=== PATIENT | female | born 1995 | race African-American/Black ===

== ENCOUNTER 2022-10-23 16:47 | Inpatient (IN) | payer BC, MEDICAID ==
[~2022-10-23] VITALS: Ht 160 cm; Wt 86.6 kg
[2022-10-23] MEDS ORDERED: HALOPERIDOL 5 MG TABLET PO PRN (19:30)
[2022-10-23] MEDS ORDERED: ZOLPIDEM TARTRATE 10 MG TABLET PO PRN (19:30)
[2022-10-23 19:43] VITALS: BP 110/69
[2022-10-23] MEDS ORDERED: INFLUENZA VIRUS VACCINE QVS 2022-23 (6MO+)/PF 60 MCG/0.5 ML SYRINGE IM. ONE (20:15)
[2022-10-24] MEDS ORDERED: DOCUSATE SODIUM 100 MG CAPSULE PO PRN (07:00)
[2022-10-24] MEDS ORDERED: MAG HYDROX/AL HYDROX/SIMETH ES 30 ML SUSPENSION UDCUP PO PRN (07:00)
[2022-10-24] MEDS ORDERED: CloNIDine HCL 0.1 MG TABLET PO PRN (07:00)
[2022-10-24] MEDS ORDERED: LOPERAMIDE HCL 2 MG CAPSULE PO PRN (07:00)
[2022-10-24] MEDS ORDERED: PETROLATUM,WHITE 28 GM JELLY TP PRN (07:00)
[2022-10-24] MEDS ORDERED: NICOTINE 14 MG/24 HOUR PATCH TD PRN (07:00)
[2022-10-24] MEDS ORDERED: GuaiFENesin/D-METHORPHAN [SUGAR-FREE] 200-20MG/10 ML SYRUP UDCUP PO PRN (07:00)
[2022-10-24] MEDS ORDERED: MAGNESIUM HYDROXIDE SUSPENSION 30 ML UDCUP PO PRN (07:00)
[2022-10-24] MEDS ORDERED: IBUPROFEN 400 MG TABLET PO PRN (07:00)
[2022-10-24] MEDS ORDERED: ALBUTEROL SULFATE HFA 90 MCG/PUFF 8 GM INHALER IH PRN (07:00)
[2022-10-24] MEDS ORDERED: ONDANSETRON HCL 4 MG TABLET PO PRN (07:00)
[2022-10-24] MEDS ORDERED: ACETAMINOPHEN 325 MG TABLET PO PRN (07:00)
[2022-10-24] MEDS ORDERED: ARIP15TA27 PO (09:17)
[2022-10-24] MEDS: DIVALPROEX SODIUM 500 MG DR TABLET PO SCH ×3 (09:30→21:00)
[2022-10-24] MEDS: ARIPiprazole 15 MG TABLET PO SCH ×2 (09:30→09:51)
[2022-10-24] MEDS ORDERED: LORazepam 2 MG/ML VIAL IM ONE ×2 (13:30→13:45)
[2022-10-24] MEDS ORDERED: HALOPERIDOL LACTATE 5 MG/ML VIAL IM ONE ×2 (13:30→13:45)
[2022-10-24] MEDS ORDERED: DiphenhydrAMINE HCL 50 MG/ML VIAL IM ONE ×2 (13:30→13:45)
[2022-10-24] MEDS ORDERED: LORazepam 2 MG/ML VIAL ONE (13:30)
[2022-10-24] MEDS ORDERED: DiphenhydrAMINE HCL 50 MG/ML VIAL ONE (13:31)
[2022-10-24] MEDS ORDERED: HALOPERIDOL LACTATE 5 MG/ML VIAL ONE (13:31)
[2022-10-24 13:53] VITALS: BP 113/75
[2022-10-25 07:46] LABS: BASOPHILS % (AUTO) 0.5 % (0.0-2.0); EOSINOPHILS % (AUTO) 0.9 % (1.0-6.0); HEMATOCRIT 38.5 % (36-46); HEMOGLOBIN 12.3 g/dL (12.0-16.0); MEAN CORPUSCULAR HEMOGLOBIN 21.8 pg (26.0-34.0); MEAN CORPUSCULAR HGB CONC 31.9 G/dL (31.0-37.0); MEAN CORPUSCULAR VOLUME 68 fL (80-100); MONOCYTES % (AUTO) 15.1 % (2.0-9.0); NEUTROPHILS # (AUTO) 3.6 K/uL (1.8-7.7); NEUTROPHILS % (AUTO) 53.5 % (40.0-70.0); PLATELET COUNT (AUTO) 424 K/uL (150-450); RED BLOOD CELL COUNT(AUTO) 5.63 MIL/uL (4.00-5.20); RED CELL DISTRIBUTION WIDTH 16.3 % (11.5-14.5)
[2022-10-25 07:55] LABS: HEMOGLOBIN A1C 5.7 % (3.8-5.6)
[2022-10-25 08:15] LABS: ALANINE AMINOTRANSFERASE 27 U/L (12-78); ALBUMIN 2.9 g/dL (3.4-5.0); ALKALINE PHOSPHATASE 47 U/L (46-116); ANION GAP 10 mmol/L (8-16); ASPARTATE AMINOTRANSFERASE 24 U/L (15-37); BILIRUBIN,TOTAL 0.3 mg/dL (0.1-1.0); CARBON DIOXIDE 29 mmol/L (22-29); CHLORIDE 101 mmol/L (98-107); CHOL/HDL RATIO 3.3 (3.9-5.7); CHOLESTEROL 117 mg/dL (131-200); CREATININE 0.89 mg/dL (0.60-1.30); GLUCOSE,RANDOM 69 mg/dL (70-110); HCG,QUANTITATIVE < 1 mIU/mL (0-6); HDL CHOLESTEROL 36 mg/dL (40-60); LDL CHOL (CALC.) 70 mg/dL (0-130); POTASSIUM 4.1 mmol/L (3.5-5.1); SODIUM SERUM 140 mmol/L (136-145); THYROID STIMULATING HORMONE 1.25 uIU/mL (0.36-3.74); TOTAL PROTEIN, SERUM 8.5 g/dL (6.4-8.2); TRIGLYCERIDES 56 mg/dL (15-150); UREA NITROGEN, BLOOD 12 mg/dL (7-18)
[2022-10-25 08:16] LABS: GLOMERULAR FILTR. RATE CALC > 60 mL/min (>60)
[2022-10-25] MEDS: ARIPiprazole 15 MG TABLET PO SCH (08:20)
[2022-10-25] MEDS: DIVALPROEX SODIUM 500 MG DR TABLET PO SCH ×2 (08:20→20:26)
[2022-10-25] MEDS: LORazepam 2 MG TABLET PO PRN (09:52)
[2022-10-25 10:43] VITALS: BP 115/72
[2022-10-26] MEDS: LORazepam 2 MG TABLET PO PRN ×2 (08:14→18:22)
[2022-10-26] MEDS: ARIPiprazole 15 MG TABLET PO SCH (08:14)
[2022-10-26 08:56] VITALS: BP 118/86
[2022-10-26] MEDS: DIVALPROEX SODIUM 500 MG DR TABLET PO SCH ×2 (08:58→21:00)
[2022-10-26] MEDS ORDERED: NICOTINE POLACRILEX 4 MG GUM CHEW PRN (18:45)
[2022-10-26 20:00] VITALS: BP 109/70
[2022-10-27 07:26] LABS: APPEARANCE,URINE HAZY (CLEAR); BILIRUBIN,URINE NEGATIVE (NEGATIVE); GLUCOSE, URINE (UA) NEGATIVE (NEGATIVE); KETONES,URINE TRACE mg/dL (NEGATIVE); LEUKOCYTE ESTERASE ,URINE NEGATIVE (NEGATIVE); NITRATE,URINE NEGATIVE (NEGATIVE); OCCULT BLOOD,URINE MODERATE (NEGATIVE); PH,URINE 7.5 (5.0-8.0); PROTEIN,URINE 30-70 mg/dL (NEGATIVE); SPECIFIC GRAVITIY, URINE 1.027 (1.003-1.030)
[2022-10-27 07:33] LABS: AMPHET/METH SCREEN,URINE NEGATIVE (NEGATIVE); BARBITURATE SCREEN, URINE NEGATIVE (NEGATIVE); BENZODIAZEPINES SCREEN,URINE NEGATIVE (NEGATIVE); CANNABINOID SCREEN,URINE POSITIVE (NEGATIVE); COCAINE SCREEN,URINE NEGATIVE (NEGATIVE); METHADONE SCREEN, URINE NEGATIVE (NEGATIVE); OPIATE SCREEN,URINE NEGATIVE (NEGATIVE); PHENCYCLIDINE SCREEN,URINE NEGATIVE (NEGATIVE)
[2022-10-27 08:03] VITALS: BP 115/81
[2022-10-27 08:12] LABS: BACTERIA,URINE None Seen /HPF (None Seen); RBC,URINE 0-2 /HPF (0-2); SQUAMOUS EPITHELIAL CELL,UR Few /LPF (None Seen); WBC,URINE 0-2 /HPF (0-5)
[2022-10-27] MEDS: DIVALPROEX SODIUM 500 MG DR TABLET PO SCH (08:13)
[2022-10-27] MEDS: ARIPiprazole 15 MG TABLET PO SCH (08:13)
[2022-10-27] MEDS ORDERED: ARIP15TA27 PO (10:19)
[2022-10-27] MEDS ORDERED: HYDR50CA7 PO (10:19)
== END 2022-10-27 14:40 | disposition home or self-care (01) | DRG 885 ==
LOC: B3A 19:17
PROVIDERS: ADMIT Psychiatry & Neurology Psychiatry; ATTEND Psychiatry & Neurology Psychiatry
DX: F31.2 Bipolar disorder, current episode manic severe with psychotic features (principal); E66.9 Obesity, unspecified; F19.10 Other psychoactive substance abuse, uncomplicated; Z88.0 Allergy status to penicillin; Z88.8 Allergy status to other drugs, medicaments and biological substances; Z79.899 Other long term (current) drug therapy; Z68.33 Body mass index [BMI] 33.0-33.9, adult
CPT/HCPCS: 80053; 80061; 80307; 81001; 83036; 84439; 84443; 84702; 85025; J1200; J1630; J2060

== ENCOUNTER 2022-11-28 11:49 | Inpatient (IN) | payer BC, MEDICAID ==
[~2022-11-28] VITALS: Ht 160 cm; Wt 84.0 kg
[~2022-11-28 11:49] MED LIST: ARIP15TA27 PO; HYDR50CA7 PO
[2022-11-28] MEDS ORDERED: DiphenhydrAMINE HCL 50 MG/ML VIAL IM ONE ×2 (13:15→17:15)
[2022-11-28] MEDS ORDERED: LORazepam 2 MG/ML VIAL IM ONE ×2 (13:15→17:15)
[2022-11-28] MEDS ORDERED: HALOPERIDOL LACTATE 5 MG/ML VIAL IM ONE ×2 (13:15→17:15)
[2022-11-28] MEDS ORDERED: HALOPERIDOL 5 MG TABLET PO PRN (14:00)
[2022-11-28] MEDS ORDERED: LORazepam 2 MG TABLET PO PRN (14:00)
[2022-11-28] MEDS ORDERED: ZOLPIDEM TARTRATE 10 MG TABLET PO PRN (14:00)
[2022-11-28 14:34] LABS: COVID AG,FIA SOURCE NASOPHARYNGEAL
[2022-11-28 19:36] LABS: BASOPHILS % (AUTO) 0.9 % (0.0-2.0); EOSINOPHILS % (AUTO) 0.7 % (1.0-6.0); HEMOGLOBIN 12.7 g/dL (12.0-16.0); LYMPHOCYTES # (AUTO) 3.4 K/uL (1.0-4.8); LYMPHOCYTES % (AUTO) 45.6 % (22.0-44.0); MEAN CORPUSCULAR HEMOGLOBIN 21.7 pg (26.0-34.0); MEAN CORPUSCULAR HGB CONC 31.9 G/dL (31.0-37.0); MEAN CORPUSCULAR VOLUME 68 fL (80-100); MONOCYTES # (AUTO) 0.7 K/uL (0.1-1.0); MONOCYTES % (AUTO) 9.8 % (2.0-9.0); NEUTROPHILS # (AUTO) 3.2 K/uL (1.8-7.7); PLATELET COUNT (AUTO) 342 K/uL (150-450); RED BLOOD CELL COUNT(AUTO) 5.87 MIL/uL (4.00-5.20); RED CELL DISTRIBUTION WIDTH 17.6 % (11.5-14.5)
[2022-11-28 19:51] LABS: ANION GAP 6 mmol/L (8-16); CALCIUM, TOTAL 9.7 mg/dL (8.8-10.5); CARBON DIOXIDE 27 mmol/L (22-29); CHLORIDE 100 mmol/L (98-107); CREATININE 0.78 mg/dL (0.60-1.30); GLOMERULAR FILTR. RATE CALC > 60 mL/min (>60); GLUCOSE,RANDOM 82 mg/dL (70-110); POTASSIUM 4.1 mmol/L (3.5-5.1); SODIUM SERUM 133 mmol/L (136-145); UREA NITROGEN, BLOOD 13 mg/dL (7-18)
[2022-11-28 20:02] LABS: ALANINE AMINOTRANSFERASE 33 U/L (12-78); ALBUMIN 3.7 g/dL (3.4-5.0); ALKALINE PHOSPHATASE 42 U/L (46-116); ASPARTATE AMINOTRANSFERASE 43 U/L (15-37); BILIRUBIN,TOTAL 0.7 mg/dL (0.1-1.0); TOTAL PROTEIN, SERUM 8.3 g/dL (6.4-8.2)
[2022-11-28 20:23] LABS: HCG,QUANTITATIVE < 1 mIU/mL (0-6); THYROID STIMULATING HORMONE 1.84 uIU/mL (0.36-3.74)
[2022-11-29] MEDS ORDERED: PETROLATUM,WHITE 28 GM JELLY TP PRN (06:30)
[2022-11-29] MEDS ORDERED: CloNIDine HCL 0.1 MG TABLET PO PRN (06:30)
[2022-11-29] MEDS ORDERED: DOCUSATE SODIUM 100 MG CAPSULE PO PRN (06:30)
[2022-11-29] MEDS ORDERED: ACETAMINOPHEN 325 MG TABLET PO PRN (06:30)
[2022-11-29] MEDS ORDERED: MAG HYDROX/AL HYDROX/SIMETH ES 30 ML SUSPENSION UDCUP PO PRN (06:30)
[2022-11-29] MEDS ORDERED: NICOTINE 14 MG/24 HOUR PATCH TD PRN (06:30)
[2022-11-29] MEDS ORDERED: ONDANSETRON HCL 4 MG TABLET PO PRN (06:30)
[2022-11-29] MEDS ORDERED: MAGNESIUM HYDROXIDE SUSPENSION 30 ML UDCUP PO PRN (06:30)
[2022-11-29] MEDS ORDERED: ALBUTEROL SULFATE HFA 90 MCG/PUFF 8 GM INHALER IH PRN (06:30)
[2022-11-29] MEDS ORDERED: IBUPROFEN 400 MG TABLET PO PRN (06:30)
[2022-11-29] MEDS ORDERED: GuaiFENesin/D-METHORPHAN [SUGAR-FREE] 200-20MG/10 ML SYRUP UDCUP PO PRN (06:30)
[2022-11-29] MEDS ORDERED: LOPERAMIDE HCL 2 MG CAPSULE PO PRN (06:30)
[2022-11-29 09:07] VITALS: BP 151/86
[2022-11-29] MEDS: ARIPiprazole 10 MG TABLET PO SCH ×2 (12:45→12:58)
[2022-11-29] MEDS: HydrOXYzine PAMOATE 50 MG CAPSULE PO SCH ×3 (12:58→17:00)
[2022-11-30] MEDS: ARIPiprazole 10 MG TABLET PO SCH (09:00)
[2022-11-30] MEDS: HydrOXYzine PAMOATE 50 MG CAPSULE PO SCH ×3 (09:00→17:00)
[2022-11-30 09:37] VITALS: BP 98/64
[2022-12-01] MEDS: HydrOXYzine PAMOATE 50 MG CAPSULE PO SCH (09:00)
[2022-12-01] MEDS: ARIPiprazole 10 MG TABLET PO SCH (09:00)
[2022-12-01 09:14] VITALS: BP 126/68
[2022-12-01] MEDS ORDERED: ARIP15TA27 PO (10:13)
[2022-12-01] MEDS ORDERED: HYDR50CA7 PO (11:52)
[2022-12-01] MEDS ORDERED: ARIP10TA38 PO (11:52)
== END 2022-12-01 13:03 | disposition home or self-care (01) | DRG 885 ==
LOC: EMS 11:49 → 3EC 11-29 00:11
PROVIDERS: ADMIT Psychiatry & Neurology Child & Adolescent Psychiatry; ATTEND Psychiatry & Neurology Child & Adolescent Psychiatry
DX: F20.9 Schizophrenia, unspecified (principal); E87.1 Hypo-osmolality and hyponatremia; F31.9 Bipolar disorder, unspecified; F41.9 Anxiety disorder, unspecified; I10 Essential (primary) hypertension; G47.00 Insomnia, unspecified; Z20.822 Contact with and (suspected) exposure to COVID-19; Z78.1 Physical restraint status; Z91.199 Patient's noncompliance with other medical treatment and regimen due to unspecified reason; Z79.899 Other long term (current) drug therapy; Z88.8 Allergy status to other drugs, medicaments and biological substances; Z88.0 Allergy status to penicillin; Z59.00 Homelessness unspecified
CPT/HCPCS: 80053; 84443; 84702; 85025; 99285; G0480; J1200; J1630; J2060